=== PATIENT | male | born 1945 | race Caucasian/White ===

== ENCOUNTER → 2018-04-30 09:34 | Outpatient (CLI) | payer OTHER, SELFPAY ==
[2018-04-30 10:41] LABS: Add Manual Diff / Slide Review NO; Basophils Percent Auto 0.6 % (0-2); Eosinophils Percent Auto 4.2 % (2-4); Hematocrit 44.3 % (41-53); Hemoglobin 14.9 g/dL (13.5-17.5); Mean Corpuscular HGB Conc 33.7 % (30-36); Mean Corpuscular Hemoglobin 31.4 PG (26-34); Mean Corpuscular Volume 93.2 fL (80-100); Monocytes Percent Auto 9.8 % (3-14); Neutrophils Absolute Auto 4300 /uL (3000-5900); Neutrophils Percent Auto 57.4 % (50-75); Platelet Count 302 X10^3/uL (150-400); Red Blood Cell Count 4.75 X10^6/uL (4.5-5.9); Red Cell Distribution Width 14.6 % (11.6-14.8); White Blood Cell Count 7.5 X10^3/uL (4.5-11.0)
[2018-04-30 11:02] LABS: Alanine Aminotransferase 35 IU/L (21-72); Albumin 4.5 g/dL (3.5-5.0); Albumin Globulin Ratio 1.7 (1.0-2.8); Alkaline Phosphatase 66 U/L (38-126); Aspartate Aminotransferase 37 IU/L (17-59); Bilirubin Total 0.6 mg/dL (0.2-1.3); Blood Urea Nitrogen 28 mg/dL (9-20); Calcium 9.7 mg/dL (8.4-10.2); Carbon Dioxide 31 mmol/L (22-32); Chloride 99 mmol/L (98-107); Estimated Glomerular Filt Rate > 60.0 mL/min (>60); Globulin 2.7 g/dL (1.7-4.1); Glucose 79 mg/dL (80-110); HEMOLYSIS < 15 (0-50); Potassium 5.4 mmol/L (3.4-5.1); Sodium 139 mmol/L (137-145); Total Protein 7.2 g/dL (6.3-8.2)
[2018-04-30 11:11] LABS: Lithium < 0.2 mmol/L (0.6-1.2)
[2018-04-30 11:27] LABS: Prostate Specific Antigen Scrn 0.905 ng/mL (0.1-4.0)
[2018-04-30 11:47] LABS: TSH w/ Reflex to FT4 2.99 uIU/mL (0.47-4.68)
== END ==
PROVIDERS: Family Provider Family Medicine; PCP Family Medicine; Visit Provider Family Medicine
DX: F31.9 Bipolar disorder, unspecified (principal); I48.91 Unspecified atrial fibrillation; Z12.11 Encounter for screening for malignant neoplasm of colon
CPT/HCPCS: 36415; 80053; 80178; 84443; 85025; G0103

== ENCOUNTER → 2019-02-03 10:56 | Outpatient (CLI) | payer OTHER, SELFPAY ==
--- NOTE | 2019-02-05 09:41 | P.PFT.S_ITS ---
Pulmonary Function Test Referral & Results Date Patient Seen: 02/05/19 Requesting provider: Homero Spaulding Indication: Cough Results: The spirometry demonstrates an FVC of 3.31 L which is 83% of predicted. The FEV1 was measured at 1.73 L which is 60% of predicted. The FEV1/FVC ratio was 52 which is 71% of predicted. Following the administration of bronchodilator there was no significant change. Lung volumes show an SVC of 3.43 L which is 81% of predicted. The diffusing capacity was measured at 20.81 which is 70% of predicted. No hemoglobin value was provided, so no correction for potential anemia could be ma de, if appropriate. The maximum voluntary ventilation was reduced Interpretation: This study demonstrates moderate obstructive lung disease based on reduction in FEV1 and FEV1/FVC ratio. There is no evidence of significant benefit following bronchodilator There is mild reduction lung volumes suggesting mild restrictive lung disease as well There is also mild reduction in diffusing capacity suggesting an element of disease at the capillary alveolar level
== END ==
PROVIDERS: PCP Family Medicine; Visit Provider Family Medicine
DX: R05 Cough (principal)
CPT/HCPCS: 94060; 94726; 94729

== ENCOUNTER → 2019-06-19 12:10 | Outpatient (CLI) | payer OTHER, SELFPAY ==
[2019-06-19 13:12] LABS: Add Manual Diff / Slide Review NO; Basophils Absolute Auto 100 /uL (0-100); Basophils Percent Auto 0.8 % (0-2); Eosinophils Absolute Auto 300 /uL (0-450); Eosinophils Percent Auto 3.9 % (2-4); Hematocrit 40.2 % (41-53); Hemoglobin 13.7 g/dL (13.5-17.5); Lymphocytes Absolute Auto 2000 /uL (1100-4500); Lymphocytes Percent Auto 22.8 % (25-40); Mean Corpuscular HGB Conc 34.1 % (30-36); Mean Corpuscular Hemoglobin 30.9 PG (26-34); Mean Corpuscular Volume 90.6 fL (80-100); Monocytes Absolute Auto 700 /uL (0-900); Monocytes Percent Auto 8.3 % (3-14); Neutrophils Absolute Auto 5600 /uL (1500-7000); Neutrophils Percent Auto 64.2 % (50-75); Platelet Count 366 X10^3/uL (150-400); Red Blood Cell Count 4.44 X10^6/uL (4.5-5.9); Red Cell Distribution Width 13.9 % (11.6-14.8); White Blood Cell Count 8.6 X10^3/uL (4.5-11.0)
[2019-06-19 13:42] LABS: Alanine Aminotransferase 16 IU/L (21-72); Albumin Globulin Ratio 1.5 (1.0-2.8); Alkaline Phosphatase 64 U/L (38-126); Aspartate Aminotransferase 20 IU/L (17-59); BUN Creatinine Ratio 33.8 (6-22); Bilirubin Total 0.4 mg/dL (0.2-1.3); Blood Urea Nitrogen 27 mg/dL (9-20); Calcium 9.5 mg/dL (8.4-10.2); Carbon Dioxide 26 mmol/L (22-32); Chloride 104 mmol/L (98-107); Cholesterol 178 mg/dL (140-199); Estimated Glomerular Filt Rate > 60.0 mL/min (>60); Globulin 2.7 g/dL (1.7-4.1); Glucose 88 mg/dL (80-110); HDL Cholesterol 57 mg/dL (40-60); HEMOLYSIS < 15 (0-50); LDL Cholesterol Calculated 101 mg/dL (<100); Potassium 4.9 mmol/L (3.4-5.1); Sodium 140 mmol/L (137-145); Total Protein 6.7 g/dL (6.3-8.2); Triglycerides 98 mg/dL (35-150)
[2019-06-19 14:14] LABS: TSH w/ Reflex to FT4 3.63 uIU/mL (0.47-4.68)
== END ==
PROVIDERS: PCP Family Medicine; Visit Provider Family Medicine
DX: E03.9 Hypothyroidism, unspecified (principal); F31.9 Bipolar disorder, unspecified; I48.92 Unspecified atrial flutter; Z79.01 Long term (current) use of anticoagulants
CPT/HCPCS: 36415; 80053; 80061; 84443; 85025; G0103

== ENCOUNTER → 2019-11-28 11:37 | Outpatient (CLI) | payer OTHER, SELFPAY ==
[2019-11-28 12:15] LABS: Add Manual Diff / Slide Review NO; Basophils Absolute Auto 100 /uL (0-100); Basophils Percent Auto 0.9 % (0-2); Eosinophils Absolute Auto 500 /uL (0-450); Hemoglobin 14.7 g/dL (13.5-17.5); Lymphocytes Absolute Auto 2100 /uL (1100-4500); Lymphocytes Percent Auto 22.6 % (25-40); Mean Corpuscular HGB Conc 33.3 % (30-36); Mean Corpuscular Hemoglobin 30.5 PG (26-34); Mean Corpuscular Volume 91.5 fL (80-100); Monocytes Absolute Auto 700 /uL (0-900); Monocytes Percent Auto 7.5 % (3-14); Neutrophils Absolute Auto 5800 /uL (1500-7000); Platelet Count 373 X10^3/uL (150-400); Red Blood Cell Count 4.81 X10^6/uL (4.5-5.9); Red Cell Distribution Width 14.3 % (11.6-14.8); White Blood Cell Count 9.1 X10^3/uL (4.5-11.0)
[2019-11-28 12:37] LABS: Lithium 0.5 mmol/L (0.6-1.2)
[2019-11-28 12:38] LABS: Alanine Aminotransferase 19 IU/L (<50); Albumin 4.5 g/dL (3.5-5.0); Albumin Globulin Ratio 1.4 (1.0-2.8); Alkaline Phosphatase 63 U/L (38-126); Aspartate Aminotransferase 26 IU/L (17-59); BUN Creatinine Ratio 30.9 (6-22); Bilirubin Total 0.6 mg/dL (0.2-1.3); Blood Urea Nitrogen 34 mg/dL (9-20); Calcium 9.8 mg/dL (8.4-10.2); Carbon Dioxide 29 mmol/L (22-32); Chloride 104 mmol/L (98-107); Estimated Glomerular Filt Rate > 60.0 mL/min (>60); Globulin 3.2 g/dL (1.7-4.1); Glucose 91 mg/dL (80-110); HEMOLYSIS < 15 (0-50); Potassium 4.7 mmol/L (3.4-5.1); Sodium 141 mmol/L (137-145); Total Protein 7.7 g/dL (6.3-8.2)
[2019-11-28 13:07] LABS: Thyroid Stimulating Hormone 3.75 uIU/mL (0.47-4.68)
== END ==
PROVIDERS: Referring Provider Family Medicine; Visit Provider Family Medicine
DX: E03.9 Hypothyroidism, unspecified (principal); I48.92 Unspecified atrial flutter; J44.9 Chronic obstructive pulmonary disease, unspecified; Z79.01 Long term (current) use of anticoagulants; Z79.899 Other long term (current) drug therapy
CPT/HCPCS: 36415; 80053; 80178; 84443; 85025

== ENCOUNTER → 2021-07-07 14:19 | Outpatient (CLI) | payer OTHER, SELFPAY ==
--- NOTE | 2021-07-07 14:24 | DI.RAD.S_ITS ---
PROCEDURE: XR CHEST 2V INDICATIONS: Pain right lower anterior chest wall TECHNIQUE: 2 views of the chest were acquired. COMPARISON: CT, THORAX WITHOUT CONTRAST, 05/17/2017, 9:43. [facility], CR, CHEST 1 VIEW, 07/16/2013, 10:16. FINDINGS: Surgical changes and devices: None. Lungs and pleura: Lungs are clear, aside from chronic mid left lung scarring which appears stable over time.. No pleural effusions or pneumothorax. Mediastinum: Mediastinal contours are normal. Heart size is normal. Bones and chest wall: No suspicious bony abnormalities. Soft tissues appear unremarkable. IMPRESSION: Chronic mid left lung scarring which appears stable over time. No acute cardiopulmonary disease. Dictated by: Balaji Stallings [facility] Interpreted: Juan Ospina MD on 07/07/2021 at 14:59 Transcribed by: GUDELIA on 07/07/2021 at 15:02 Approved by: Juan Ospina M.D. on 07/07/2021 at 17:28
[2021-07-07 14:50] LABS: Add Manual Diff / Slide Review NO; Basophils Absolute Auto 100 /uL (0-100); Basophils Percent Auto 0.7 % (0-2); Eosinophils Absolute Auto 200 /uL (0-450); Eosinophils Percent Auto 1.8 % (2-4); Hematocrit 45.2 % (41-53); Hemoglobin 14.7 g/dL (13.5-17.5); Lymphocytes Absolute Auto 1700 /uL (1100-4500); Lymphocytes Percent Auto 15.5 % (25-40); Mean Corpuscular HGB Conc 32.6 % (30-36); Mean Corpuscular Hemoglobin 30.1 PG (26-34); Mean Corpuscular Volume 92.4 fL (80-100); Monocytes Absolute Auto 700 /uL (0-900); Monocytes Percent Auto 6.6 % (3-14); Neutrophils Absolute Auto 8000 /uL (1500-7000); Neutrophils Percent Auto 75.4 % (50-75); Platelet Count 383 X10^3/uL (150-400); Red Blood Cell Count 4.89 X10^6/uL (4.5-5.9); Red Cell Distribution Width 14.7 % (11.6-14.8); White Blood Cell Count 10.7 X10^3/uL (4.5-11.0)
[2021-07-07 15:03] LABS: INR 2.7 (0.9-1.3); Prothrombin Time 30.8 SECONDS (10.1-12.7)
[2021-07-07 15:12] LABS: Lithium 0.4 mmol/L (0.6-1.2)
[2021-07-07 15:19] LABS: Alanine Aminotransferase 17 IU/L (<50); Albumin 4.5 g/dL (3.5-5.0); Albumin Globulin Ratio 1.5 (1.0-2.8); Alkaline Phosphatase 65 U/L (38-126); Aspartate Aminotransferase 25 IU/L (17-59); BUN Creatinine Ratio 18.7 (6-22); Bilirubin Total 0.5 mg/dL (0.2-1.3); Blood Urea Nitrogen 20 mg/dL (9-20); Calcium 9.9 mg/dL (8.4-10.2); Carbon Dioxide 31 mmol/L (22-32); Chloride 104 mmol/L (98-107); Estimated Glomerular Filt Rate > 60.0 mL/min (>60); Globulin 3.1 g/dL (1.7-4.1); Glucose 102 mg/dL (80-110); HEMOLYSIS < 15 (0-50); Sodium 141 mmol/L (137-145); Total Protein 7.6 g/dL (6.3-8.2)
[2021-07-07 15:21] LABS: Potassium 5.9 mmol/L (3.4-5.1)
[2021-07-07 15:46] LABS: Thyroid Stimulating Hormone 3.72 uIU/mL (0.47-4.68)
== END ==
PROVIDERS: Physician Assistant; PCP Family Medicine
DX: R07.89 Other chest pain (principal); E03.9 Hypothyroidism, unspecified; Z87.891 Personal history of nicotine dependence; I48.91 Unspecified atrial fibrillation; R10.11 Right upper quadrant pain; Z79.01 Long term (current) use of anticoagulants; F31.9 Bipolar disorder, unspecified; Z79.899 Other long term (current) drug therapy
CPT/HCPCS: 36415; 71046; 80053; 80178; 84443; 85025; 85610

== ENCOUNTER → 2021-07-21 12:37 | Outpatient (CLI) | payer OTHER, SELFPAY ==
--- NOTE | 2021-07-21 12:38 | DI.US.S_ITS ---
PROCEDURE: US ABDOMEN LIMITED INDICATIONS: RUQ PAIN TECHNIQUE: Real-time focused scanning was performed of the abdomen, with image documentation. COMPARISON: None. FINDINGS: The liver is normal in size and demonstrates no suspicious lesions. Simple cysts are seen, which measure up to 1 cm in the right liver posteriorly and up to 1.1 cm within the medial left lobe. No findings of gallstones or sludge are seen. The gallbladder wall is not thickened, measuring 3 mm or less. No specific pericholecystic fluid is seen. The sonographic Schwartz sign is negative. There is no biliary dilatation, the common bile duct measures 6 mm. No significant pancreatic abnormality is seen on these images. IMPRESSION: The gallbladder demonstrates a normal sonographic appearance. No biliary dilatation is seen. Simple appearing liver cysts are incidentally noted. Dictated by: Kemal Kaur M.D. on 07/21/2021 at 12:37 Approved by: Kemal Kaur M.D. on 07/21/2021 at 12:37
== END ==
PROVIDERS: PCP Family Medicine; Referring Provider Physician Assistant; Visit Provider Physician Assistant
DX: R10.11 Right upper quadrant pain (principal); K76.89 Other specified diseases of liver
CPT/HCPCS: 76705

== ENCOUNTER 2022-01-12 09:03 | Emergency (ER) | payer OTHER, SELFPAY ==
[2022-01-12] VITALS (38 sets, daily range): BP systolic 83–108; BP diastolic 59–74; PULSE 74–111; RESP 18–36; TEMP 36.9; O2SAT 100; BMI 20.3
--- NOTE | 2022-01-12 09:15 | DI.RAD.S_ITS ---
PROCEDURE: XR CHEST 1V INDICATIONS: Chest pain TECHNIQUE: One view of the chest was acquired. COMPARISON: [facility], CR, XR CHEST 1 VIEW, 01/06/2022, 22:37. [facility], CR, XR CHEST 2V, 07/07/2021, 14:52. FINDINGS: Surgical changes and devices: None. Lungs and pleura: Low lung volumes are noted. This causes a crowded appearance to the lung markings and limits evaluation. There is a small left-sided pleural effusion. Poorly defined opacity can be seen at the left lung base. Mediastinum: Mediastinal contours appear normal. Heart size is mildly enlarged. Bones and chest wall: No suspicious bony lesions. Age-appropriate bony degenerative changes are seen. Overlying soft tissues appear unremarkable. IMPRESSION: Small left-sided pleural effusion, with mild poorly defined opacity within the left lower lung. Differential diagnosis includes infiltrate and atelectasis. These findings have worsened compared to the recent 01/06/2022 examination. If clinically appropriate, a short-term followup chest series (with PA and lateral views) performed in deep inspiration is suggested for further evaluation. Mild cardiomegaly. Dictated by: Kemal Kaur M.D. on 01/12/2022 at 8:37 Approved by: Kemal Kaur M.D. on 01/12/2022 at 8:39
--- NOTE | 2022-01-12 09:17 | ED_ITS ---
HPI - Arrhythmia/Palpitations General Chief Complaint: Arrhythmia/Palpitations Stated Complaint: Supraventricular tachycardia Time Seen by Provider: 01/12/22 09:14 Source: patient Mode of arrival: EMS History of Present Illness HPI narrative: Patient here for palpitations and generalized weakness. Patient has history atrial fibrillation is on warfarin. Patient just discharged from [facility] yesterday for chest pain and cardiac workup. He did have a heart catheterization while he was there. 3:00 a.m. this morning he awoke feeling palpitations and general fatigue. He lives on [address] [place] [address]. EMS arrived this morning found him in SVT. Tried adenosine 6 mg/12 mg without improvement. They did give him Cardizem 15 mg which lowered his heart rate to 110. Patient feeling much better. Related Data Previous Rx's Medication Instructions Recorded albuterol sulfate 90 mcg/actuation 2 puff INHALATION Q4-6H PRN #8.5 03/05/17 aerosol inhaler (Ventolin HFA) gram levothyroxine 50 mcg tablet See Rx Instructions .ROUTE 10/13/21 .COMPLEX #90 tablet lithium carbonate 300 mg See Rx Instructions .ROUTE 10/13/21 tablet,extended release .COMPLEX #90 tablet colchicine 0.6 mg tablet See Rx Instructions PO .COMPLEX 10/25/21 #10 tab lamotrigine 100 mg tablet See Rx Instructions .ROUTE 11/24/21 .COMPLEX #225 tab metoprolol tartrate 50 mg tablet See Rx Instructions .ROUTE 12/26/21 .COMPLEX #180 tab warfarin 5 mg tablet 5 mg PO QDAY #90 tab 01/04/22 Allergies Allergy/AdvReac Type Severity Reaction Status Date / Time venom-wasp [wasp venom] Allergy Mild Verified 01/12/22 09:14 Review of Systems Review of Systems Narrative: GENERAL: Denies chills, fatigue, malaise, fever, sweats. HEENT: Denies sinus pain, ear pain, sore throat RESPIRATORY: Denies dyspnea, cough CARDIOVASCULAR: Positive for chest pain, palpitations GASTROINTESTINAL: Denies nausea, vomiting, abdominal pain : Denies dysuria, frequency, hematuria MUSCULOSKELETAL: denies muscle or bony pain SKIN: Denies rash, skin lesions NEUROLOGIC: Denies weakness, numbness ROS Unobtainable: All systems reviewed & are unremarkable except as noted in HPI and below Patient History Medical History Acquired hypothyroidism (11/24/13) Anticoagulated on warfarin (05/11/14) Atrial fibrillation (11/24/13) Atrial fibrillation (2012) Atrial flutter Bipolar affective disorder (11/24/13) Bipolar disorder (2010) Chicken pox (~1950) Current smoker (05/01/17) Gout (2014) Hypothyroidism Measles (~1950) Typical atrial flutter (03/05/17) Surgical History No history of previous surgery (08/2016) Family History Father Heart disease Hx of CABG CAD (coronary artery disease) Grandfather Stroke Mother Hypothyroid Mental health problem Grandmother Stroke Social History marital status: Smoking Status: Former smoker alcohol intake: never substance use type: does not use Smoking Status: Former smoker alcohol intake frequency: holidays/special occasions only Substance Use Type: does not use Exam Narrative Exam Narrative: GENERAL: in no distress, not toxic not dyspneic HEAD: Normocephalic. EYES: Pupils equal round No scleral icterus. ENT: Mucous membranes moist. NECK: Trachea midline. CARDIOVASCULAR: Irregular regular without murmurs, tachycardic RESPIRATORY: Clear to auscultation. Breath sounds equal bilaterally. No wheezes, rales, or rhonchi. GASTROINTESTINAL: Abdomen soft, non-tender EXTREMITIES: No gross deformities. BACK: No flank tenderness. NEURO: AOx4. SKIN: Warm and dry PSYCH: Not anxious, is cooperative Initial Vital Signs Initial Vital Signs: Vital Signs Temperature 98.4 F 01/12/22 09:14 Pulse Rate 109 H 01/12/22 09:14 Respiratory Rate 23 01/12/22 09:14 Blood Pressure 100/68 01/12/22 09:14 Pulse Oximetry 100 01/12/22 09:14 Course Course Course Narrative: No new issues during course of stay Orders Ordered: ED Orders 01/12/22 09:15 XR chest 1V Stat EKG-12 Lead Stat 01/12/22 09:26 COVID19 -Nasal swab/Pre-Proc Stat 03/31/22 09:52 Complete Blood Count AUTO DIFF Stat Comprehensive Metabolic Panel Stat Magnesium Stat Partial Thromboplastin Time Stat Prothrombin Time INR Stat Thyroid Stimulating Hormone Stat Troponin & CK Cardiac Panel Stat Discontinued Medications Diltiazem HCl 125 mg/ Dextrose 125 mls @ 5 mls/hr IV TITRATE ANANTH; Protocol Last Titration: 01/12/22 10:30 Dose: 3 mg/hr, 3 mls/hr Documented by: Admin: 01/12/22 09:29 Dose: 5 mg/hr, 5 mls/hr Documented by: ROSEMARY Reevaluation(s) Reevaluation #1: Updated patient that he is going to be transfer any agrees. Time: 10:01 Consultations Consultation #1: Spoke with cardiology Dr. Chacko, agrees patient should be transferred back to [facility] as he was just discharged yesterday. Time: 09:36 Consultation #2: Spoke with [facility], hospitalist, Dr. Schuster, he will accept patient Time: 10:01 Vital Signs Vital signs: Vital Signs - 8 hr 01/12/22 09:14 01/12/22 09:25 01/12/22 09:29 Temperature 98.4 F Pulse Rate 109 H 111 H 109 H Respiratory Rate 23 27 H Blood Pressure 100/68 95/68 Pulse Oximetry 100 01/12/22 09:30 01/12/22 09:35 01/12/22 09:40 Temperature Pulse Rate 108 H 107 H 111 H Respiratory Rate 27 H 24 31 H Blood Pressure 95/68 88/64 L 89/65 L Pulse Oximetry 01/12/22 09:45 01/12/22 09:50 01/12/22 09:55 Temperature Pulse Rate 110 H 108 H 105 H Respiratory Rate 26 H 26 H 24 Blood Pressure 101/60 Pulse Oximetry 01/12/22 10:00 01/12/22 10:05 01/12/22 10:10 Temperature Pulse Rate 106 H 102 H 99 H Respiratory Rate 20 23 22 Blood Pressure 92/68 95/68 94/64 Pulse Oximetry 01/12/22 10:15 01/12/22 10:20 01/12/22 10:25 Temperature Pulse Rate 97 H 88 86 Respiratory Rate 22 22 20 Blood Pressure 96/65 100/68 89/59 L Pulse Oximetry 01/12/22 10:30 01/12/22 10:31 01/12/22 10:35 Temperature Pulse Rate 84 86 78 Respiratory Rate 21 21 22 Blood Pressure 91/61 83/61 L Pulse Oximetry 01/12/22 10:40 01/12/22 10:45 01/12/22 10:50 Temperature Pulse Rate 77 78 77 Respiratory Rate 20 19 19 Blood Pressure 93/65 103/72 85/65 L Pulse Oximetry 01/12/22 10:55 01/12/22 10:58 01/12/22 11:00 Temperature Pulse Rate 81 80 87 Respiratory Rate 18 25 H 27 H Blood Pressure 94/62 103/64 Pulse Oximetry 01/12/22 11:05 01/12/22 11:10 01/12/22 11:15 Temperature Pulse Rate 81 100 H 92 H Respiratory Rate 19 36 H 25 H Blood Pressure 108/65 105/70 Pulse Oximetry 01/12/22 11:20 01/12/22 11:25 01/12/22 11:26 Temperature Pulse Rate 79 82 74 Respiratory Rate 23 24 23 Blood Pressure 98/67 94/68 Pulse Oximetry 01/12/22 11:30 01/12/22 11:35 01/12/22 11:39 Temperature Pulse Rate 84 80 82 Respiratory Rate 25 H 24 24 Blood Pressure 98/74 97/70 Pulse Oximetry 01/12/22 11:40 01/12/22 11:45 01/12/22 11:50 Temperature Pulse Rate 75 82 97 H Respiratory Rate 22 19 25 H Blood Pressure 102/69 91/68 102/73 Pulse Oximetry 01/12/22 11:55 01/12/22 12:00 Temperature Pulse Rate 77 77 Respiratory Rate 21 25 H Blood Pressure 104/69 105/71 Pulse Oximetry MDM - Arrhythmia/Palpitations Differential Diagnosis Differential diagnosis: Likely palpitations, sinus tachycardia, artial fibrillation, artial flutter, supraventricular tachycardia and ventricular tachycardia Lab Data Result diagrams: 01/12/22 09:52 01/12/22 09:52 Labs: Lab Results 01/12/22 01/12/22 01/12/22 Range/Units 09:26 09:52 09:52 WBC (4.5-11.0) X10^3/uL RBC (4.5-5.9) X10^6/uL Hgb (13.5-17.5) g/dL Hct (41-53) % MCV (80-100) fL MCH (26-34) PG MCHC (30-36) % RDW (11.6-14.8) % Plt Count (150-400) X10^3/uL Neut % (Auto) (50-75) % Lymph % (Auto) (25-40) % Lee % (Auto) (3-14) % Eos % (Auto) (2-4) % Baso % (Auto) (0-2) % Neut # (Auto) (2463-8524) /uL Lymph # (Auto) (6587-0131) /uL Lee # (Auto) (0-900) /uL Eos # (Auto) (0-450) /uL Baso # (Auto) (0-100) /uL PT 30.7 H (10.1-12.7) SECONDS INR 2.6 H (0.9-1.3) APTT 37 H (26.4-36.2) SECONDS Sodium 135 L (137-145) mmol/L Potassium 4.2 (3.4-5.1) mmol/L Chloride 106 (98-107) mmol/L Carbon Dioxide 23 (22-32) mmol/L BUN 24 H (9-20) mg/dL Creatinine 1.23 (0.66-1.25) mg/dL Estimated GFR 57.2 L (>60) mL/min BUN/Creatinine Ratio 19.5 (6-22) Glucose 125 H (80-110) mg/dL Calcium 7.9 L (8.4-10.2) mg/dL Magnesium (1.6-2.3) mg/dL Total Bilirubin 0.6 (0.2-1.3) mg/dL AST 40 (17-59) IU/L ALT 27 (<50) IU/L Alkaline Phosphatase 98 (38-126) U/L Total Creatine Kinase (55-170) U/L CK-MB (CK-2) CK-MB (CK-2) Rel Index Troponin I (0.01-0.034) ng/mL Total Protein 6.2 L (6.3-8.2) g/dL Albumin 3.2 L (3.5-5.0) g/dL Globulin 3.0 (1.7-4.1) g/dL Albumin/Globulin Ratio 1.1 (1.0-2.8) TSH (0.47-4.68) uIU/mL SARS-CoV-2 (PCR) Negative (Negative) 01/12/22 01/12/22 01/12/22 Range/Units 09:52 09:52 09:52 WBC 12.4 H (4.5-11.0) X10^3/uL RBC 3.99 L (4.5-5.9) X10^6/uL Hgb 11.9 L (13.5-17.5) g/dL Hct 35.8 L (41-53) % MCV 89.7 (80-100) fL MCH 29.8 (26-34) PG MCHC 33.3 (30-36) % RDW 14.6 (11.6-14.8) % Plt Count 303 (150-400) X10^3/uL Neut % (Auto) 85.6 H (50-75) % Lymph % (Auto) 6.0 L (25-40) % Lee % (Auto) 8.0 (3-14) % Eos % (Auto) 0.2 L (2-4) % Baso % (Auto) 0.2 (0-2) % Neut # (Auto) 90993 H (9215-1559) /uL Lymph # (Auto) 700 L (6230-1755) /uL Lee # (Auto) 1000 H (0-900) /uL Eos # (Auto) 0 (0-450) /uL Baso # (Auto) 0 (0-100) /uL PT (10.1-12.7) SECONDS INR (0.9-1.3) APTT (26.4-36.2) SECONDS Sodium (137-145) mmol/L Potassium (3.4-5.1) mmol/L Chloride (98-107) mmol/L Carbon Dioxide (22-32) mmol/L BUN (9-20) mg/dL Creatinine (0.66-1.25) mg/dL Estimated GFR (>60) mL/min BUN/Creatinine Ratio (6-22) Glucose (80-110) mg/dL Calcium (8.4-10.2) mg/dL Magnesium 1.6 (1.6-2.3) mg/dL Total Bilirubin (0.2-1.3) mg/dL AST (17-59) IU/L ALT (<50) IU/L Alkaline Phosphatase (38-126) U/L Total Creatine Kinase 89 (55-170) U/L CK-MB (CK-2) TNP CK-MB (CK-2) Rel Index TNP Troponin I 0.366 H* (0.01-0.034) ng/mL Total Protein (6.3-8.2) g/dL Albumin (3.5-5.0) g/dL Globulin (1.7-4.1) g/dL Albumin/Globulin Ratio (1.0-2.8) TSH 4.78 H (0.47-4.68) uIU/mL SARS-CoV-2 (PCR) (Negative) Imaging Data Chest x-ray: Radiologist's Impresson: [address] [address] XRay Report Signed Patient: Tony Laws MR#: [id number] : 1945 Acct:[id number] Age/Sex: 76 / M Date of Service: 01/12/22 Loc: ED Accession Number: [id number] ?? Procedure: XR chest 1V Ordering Provider: Jabari Hewitt MD PROCEDURE:? XR CHEST 1V ? INDICATIONS:? Chest pain ? TECHNIQUE:? One view of the chest was acquired.? ? COMPARISON:? [facility], CR, XR CHEST 1 VIEW, 01/06/2022, 22:37.? [facility], , XR CHEST 2V, 07/07/2021, 14:52. ? FINDINGS:? ? Surgical changes and devices:? None.? ? Lungs and pleura:? Low lung volumes are noted. This causes a crowded appearance to the lung markings and limits evaluation.? There is a small left-sided pleural effusion.? Poorly defined opacity can be seen at the left lung base. ? Mediastinum:? Mediastinal contours appear normal.? Heart size is mildly enlarged.? ? Bones and chest wall:? No suspicious bony lesions.? Age-appropriate bony degenerative changes are seen. ? Overlying soft tissues appear unremarkable.? ? ? IMPRESSION:? Small left-sided pleural effusion, with mild poorly defined opacity within the left lower lung.? Differential diagnosis includes infiltrate and atelectasis.? These findings have worsened compared to the recent 01/06/2022 examination. ? If clinically appropriate, a short-term followup chest series (with PA and lateral views) performed in deep inspiration is suggested for further evaluation.? ? Mild cardiomegaly. ? ? Dictated by: Kemal Kaur M.D. on 01/12/2022 at 8:37 ? ? Approved by: Kemal Kaur M.D. on 01/12/2022 at 8:39 ? ECG Data Interpretation: Atrial flutter. Rate 105. No ST elevation or depression Critical Care Time Critical Care Time Attestation: Critical Care Time 35 minutes: Critical care time is separate from other billable procedures. This critical care time includes consultation with other consulting doctors, review of records, and interpretation of data from labs, EKGs, imaging, etc. Discharge Plan Departure Patient Disposition: [facility] Clinical Impression: Atrial flutter Prescriptions: No Action metoprolol tartrate 50 mg tablet See Rx Instructions .ROUTE .COMPLEX Qty: 180 0RF Dose Instruction: TAKE 2 TABLETS BY MOUTH EVERY MORNING & TAKE 1 TABLET EVERY EVENING Rx Instructions: TAKE 2 TABLETS BY MOUTH EVERY MORNING & TAKE 1 TABLET EVERY EVENING albuterol sulfate [Ventolin HFA] 90 mcg/actuation HFA aerosol inhaler 2 puff inhalation Q4-6H PRN (Reason: shortness of breath or wheezing) Qty: 8.5 3RF lithium carbonate 300 mg tablet extended release See Rx Instructions .ROUTE .COMPLEX Qty: 90 1RF Dose Instruction: TAKE 1 TABLET BY MOUTH AT BEDTIME Rx Instructions: TAKE 1 TABLET BY MOUTH AT BEDTIME levothyroxine 50 mcg tablet See Rx Instructions .ROUTE .COMPLEX Qty: 90 1RF Dose Instruction: TAKE 1 TABLET BY MOUTH EVERY DAY Rx Instructions: TAKE 1 TABLET BY MOUTH EVERY DAY colchicine 0.6 mg tablet See Rx Instructions PO .COMPLEX Qty: 10 0RF Rx Instructions: Take 2 tabs once for acute attack and then one tab one hour later. Then stop. lamotrigine 100 mg tablet See Rx Instructions .ROUTE .COMPLEX Qty: 225 1RF Dose Instruction: TAKE 2 AND 1/2 TABLETS BY MOUTH EVERY NIGHT AT BEDTIME Rx Instructions: TAKE 2 AND 1/2 TABLETS BY MOUTH EVERY NIGHT AT BEDTIME warfarin 5 mg tablet 5 mg PO QDAY Qty: 90 1RF Rx Instructions: Take one tab (5mg) by mouth 5 days a week. along with 2mg on , and Sat or as directed. Referrals: Homero Spaulding MD [Primary Care Provider] -
[2022-01-12] MEDS: dilTIAZem 125 MG in DEXTROSE 5 % IN WATER 100 ML IV (09:29)
[2022-01-12 09:47] LABS: COVID19 -Nasal RAPID Negative (Negative)
[2022-01-12 10:01] LABS: Add Manual Diff / Slide Review NO; Basophils Absolute Auto 0 /uL (0-100); Basophils Percent Auto 0.2 % (0-2); Eosinophils Absolute Auto 0 /uL (0-450); Eosinophils Percent Auto 0.2 % (2-4); Hematocrit 35.8 % (41-53); Hemoglobin 11.9 g/dL (13.5-17.5); Lymphocytes Absolute Auto 700 /uL (1100-4500); Mean Corpuscular HGB Conc 33.3 % (30-36); Mean Corpuscular Hemoglobin 29.8 PG (26-34); Mean Corpuscular Volume 89.7 fL (80-100); Monocytes Absolute Auto 1000 /uL (0-900); Neutrophils Absolute Auto 10600 /uL (1500-7000); Neutrophils Percent Auto 85.6 % (50-75); Platelet Count 303 X10^3/uL (150-400); Red Blood Cell Count 3.99 X10^6/uL (4.5-5.9); Red Cell Distribution Width 14.6 % (11.6-14.8); White Blood Cell Count 12.4 X10^3/uL (4.5-11.0)
[2022-01-12 10:09] LABS: INR 2.6 (0.9-1.3); Prothrombin Time 30.7 SECONDS (10.1-12.7)
[2022-01-12 10:12] LABS: PTT Partial Thromboplastin Tim 37 SECONDS (26.4-36.2)
[2022-01-12 10:15] LABS: Creatine Kinase 89 U/L (55-170); Magnesium 1.6 mg/dL (1.6-2.3)
[2022-01-12 10:16] LABS: Alanine Aminotransferase 27 IU/L (<50); Albumin 3.2 g/dL (3.5-5.0); Albumin Globulin Ratio 1.1 (1.0-2.8); Alkaline Phosphatase 98 U/L (38-126); Aspartate Aminotransferase 40 IU/L (17-59); BUN Creatinine Ratio 19.5 (6-22); Bilirubin Total 0.6 mg/dL (0.2-1.3); Blood Urea Nitrogen 24 mg/dL (9-20); Calcium 7.9 mg/dL (8.4-10.2); Carbon Dioxide 23 mmol/L (22-32); Chloride 106 mmol/L (98-107); Estimated Glomerular Filt Rate 57.2 mL/min (>60); Glucose 125 mg/dL (80-110); HEMOLYSIS < 15 (0-50); Potassium 4.2 mmol/L (3.4-5.1); Sodium 135 mmol/L (137-145); Total Protein 6.2 g/dL (6.3-8.2)
[2022-01-12 11:25] LABS: Troponin I 0.366 ng/mL (0.01-0.034)
[2022-01-12 12:24] LABS: Thyroid Stimulating Hormone 4.78 uIU/mL (0.47-4.68)
== END 2022-01-12 12:15 | disposition short-term general hospital (02) ==
PROVIDERS: Emergency Provider Emergency Medicine; PCP Family Medicine
DX: I48.92 Unspecified atrial flutter (principal); Z20.822 Contact with and (suspected) exposure to COVID-19; Z79.01 Long term (current) use of anticoagulants; Z98.62 Peripheral vascular angioplasty status
CPT/HCPCS: 36415; 71045; 80053; 82550; 83735; 84443; 84484; 85025; 85610; 85730; 87635; 93005; 96365; 99284; 99285; 99291; C9803

== ENCOUNTER → 2022-02-09 12:39 | Outpatient (CLI) | payer OTHER, SELFPAY ==
--- NOTE | 2022-02-09 12:41 | DI.RAD.S_ITS ---
PROCEDURE: XR CHEST 2V INDICATIONS: F/U on pneumonia L lung - biopsy neg for cancer TECHNIQUE: 2 views of the chest were acquired. COMPARISON: [facility], CR, XR CHEST 2V, 07/07/2021, 14:52. [facility], CR, XR CHEST 1 VIEW, 01/17/2022, 12:32. FINDINGS: Surgical changes and devices: None. Lungs and pleura: Airspace opacity in the left lung is improved but not entirely resolved. There is some residual consolidation in the left retrocardiac lung. Linear scarring versus atelectasis in the left lateral mid lung is similar. Mediastinum: Mediastinal contours are normal. Heart size is normal. Bones and chest wall: No suspicious bony abnormalities. Soft tissues appear unremarkable. IMPRESSION: Improved but not entirely resolved airspace opacity in the left retrocardiac lung. Dictated by: Homero Bean M.D. on 02/09/2022 at 14:25 Approved by: Homero Bean M.D. on 02/09/2022 at 14:26
[2022-02-09 13:32] LABS: Prothrombin Time 108.5 SECONDS (10.1-12.7)
[2022-02-09 13:50] LABS: INR 9.1 (0.9-1.3)
== END ==
PROVIDERS: PCP Family Medicine; Referring Provider Physician Assistant; Visit Provider Physician Assistant
DX: I48.3 Typical atrial flutter (principal); J18.9 Pneumonia, unspecified organism; I48.91 Unspecified atrial fibrillation; I48.92 Unspecified atrial flutter; Z79.01 Long term (current) use of anticoagulants; Z79.899 Other long term (current) drug therapy
CPT/HCPCS: 36415; 71046; 85610

== ENCOUNTER → 2022-02-23 11:01 | Outpatient (CLI) | payer OTHER, SELFPAY ==
[2022-02-23 12:05] LABS: Prothrombin Time 80.6 SECONDS (10.1-12.7)
[2022-02-23 12:15] LABS: INR 6.8 (0.9-1.3)
== END ==
PROVIDERS: PCP Family Medicine; Referring Provider Physician Assistant; Visit Provider Physician Assistant
DX: I48.21 Permanent atrial fibrillation (principal); Z79.01 Long term (current) use of anticoagulants; Z79.899 Other long term (current) drug therapy
CPT/HCPCS: 36415; 85610

== ENCOUNTER → 2022-04-13 13:10 | Outpatient (CLI) | payer OTHER, SELFPAY ==
--- NOTE | 2022-05-02 10:04 | PM.CARDMON.1 ---
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 Referral & Results Date Patient Seen: 04/13/22 Requesting provider: Homero Spaulding Indication: Dizziness Duration of monitoring (days): 14 Diary information: There were no patient events to review Data: Minimum heart rate identified was 30 beats per minute at 17:25 on 04/20/2022 Maximum overall heart rate was 143 beats per minute at 23:36 on 04/14/2022 Patient was continuously in atrial flutter, with heart rate ranging between 38 and 139 beats per minute Less than 1% of identified beats were ventricular ectopic in origin There were 2 pauses of 3 seconds or longer the longest being 3.1 seconds There was 1 episode of ventricular tachycardia that was 9 beats in duration Impression: Patient continuously in atrial flutter as above with heart rates as above 2 pauses of longer than 3 seconds 1 episode of nonsustained monomorphic ventricular tachycardia as above, although reviewing the strips the QRS complexes were fairly narrow and probably represent a near supraventricular origin Clinical correlation suggested
== END ==
PROVIDERS: PCP Family Medicine; Referring Provider Family Medicine; Visit Provider Family Medicine
DX: R42 Dizziness and giddiness (principal); I48.91 Unspecified atrial fibrillation; R00.0 Tachycardia, unspecified
CPT/HCPCS: 93246; 93248

== ENCOUNTER → 2022-04-27 12:32 | Outpatient (CLI) | payer OTHER, SELFPAY ==
[2022-04-27 14:04] LABS: Prothrombin Time 90.3 SECONDS (10.1-12.7)
[2022-04-27 14:28] LABS: INR 7.5 (0.9-1.3)
== END ==
PROVIDERS: PCP Family Medicine; Referring Provider Family Medicine; Visit Provider Family Medicine
DX: I48.91 Unspecified atrial fibrillation (principal); Z79.01 Long term (current) use of anticoagulants
CPT/HCPCS: 36415; 85610

== ENCOUNTER → 2022-08-22 12:10 | Outpatient (CLI) | payer OTHER, SELFPAY ==
[2022-08-22 15:33] LABS: Prothrombin Time 54.9 SECONDS (10.1-12.7)
[2022-08-22 15:39] LABS: INR 4.7 (0.9-1.3)
== END ==
PROVIDERS: PCP Family Medicine; Referring Provider Family Medicine; Visit Provider Family Medicine
DX: I48.21 Permanent atrial fibrillation (principal); Z51.81 Encounter for therapeutic drug level monitoring; Z79.01 Long term (current) use of anticoagulants
CPT/HCPCS: 36415; 85610

== ENCOUNTER → 2022-08-30 16:35 | Outpatient (CLI) | payer OTHER, SELFPAY ==
[2022-08-30 17:12] LABS: INR 2.1 (0.9-1.3); Prothrombin Time 23.7 SECONDS (10.1-12.7)
== END ==
PROVIDERS: PCP Family Medicine; Referring Provider Family Medicine; Visit Provider Family Medicine
DX: I48.21 Permanent atrial fibrillation (principal); Z79.01 Long term (current) use of anticoagulants
CPT/HCPCS: 36415; 85610

== ENCOUNTER → 2022-09-21 15:02 | Outpatient (CLI) | payer OTHER, SELFPAY ==
[2022-09-21 16:35] LABS: INR 3.5 (0.9-1.3); Prothrombin Time 40.2 SECONDS (10.1-12.7)
== END ==
PROVIDERS: PCP Family Medicine; Referring Provider Family Medicine; Visit Provider Family Medicine
DX: I48.21 Permanent atrial fibrillation (principal); Z79.01 Long term (current) use of anticoagulants
CPT/HCPCS: 36415; 85610

== ENCOUNTER → 2022-11-23 12:23 | Outpatient (CLI) | payer OTHER, SELFPAY ==
[2022-11-23 13:55] LABS: INR 2.5 (0.9-1.3); Prothrombin Time 29.3 SECONDS (10.1-12.7)
== END ==
PROVIDERS: PCP Family Medicine; Referring Provider Family Medicine; Visit Provider Family Medicine
DX: I48.21 Permanent atrial fibrillation (principal); Z79.899 Other long term (current) drug therapy
CPT/HCPCS: 36415; 85610

== ENCOUNTER → 2022-12-07 10:27 | Outpatient (CLI) | payer OTHER, SELFPAY ==
--- NOTE | 2022-12-07 10:28 | DI.US.S_ITS ---
PROCEDURE: US ABDOMEN LIMITED INDICATIONS: RIGHT UPPER QUADRANT PAIN X 1 MONTH TECHNIQUE: Real-time focused scanning was performed of the abdomen, with image documentation. COMPARISON: [facility], , US ABDOMEN LIMITED, 07/21/2021, 12:56. FINDINGS: The liver is normal in size and demonstrates no focal lesions. Multiple liver cysts are seen, with the largest seen on the right measuring up to 1.5 cm. No findings of gallstones or sludge are seen. The gallbladder wall is not thickened, measuring 3 mm or less. No specific pericholecystic fluid is seen. The sonographic Schwartz sign is negative. There is no biliary dilatation, the common bile duct measures 7 mm. The pancreas is overall not well seen. The right kidney is atrophic and lobular, with the length of 8.8 cm. Within the mid anterior right kidney, there is a 1.3 cm simple appearing cyst. Multiple punctate echogenic foci can be seen throughout the right kidney. A potential 1 cm shadowing right kidney stone can be seen. IMPRESSION: The gallbladder demonstrates a normal sonographic appearance. No biliary dilatation is seen. Atrophic appearing right kidney. Potential 1 cm nonobstructing right-sided kidney stone, with additional likely stones present. Several simple liver cysts are seen Dictated by: Kemal Kaur M.D. on 12/07/2022 at 12:22 Approved by: Kemal Kaur M.D. on 12/07/2022 at 12:25
== END ==
PROVIDERS: PCP Family Medicine; Referring Provider Physician Assistant; Visit Provider Physician Assistant
DX: R10.11 Right upper quadrant pain (principal); K76.89 Other specified diseases of liver; N28.1 Cyst of kidney, acquired
CPT/HCPCS: 76705

== ENCOUNTER → 2023-02-09 11:25 | Outpatient (CLI) | payer OTHER, SELFPAY ==
--- NOTE | 2023-02-09 11:30 | DI.CT.S_ITS ---
PROCEDURE: CT CHEST W CON INDICATIONS: Left lung mass. Biopsy performed by CT guidance 01/17/22, with pathology report of organizing pneumonia, fibrous stage, negative for malignancy. TECHNIQUE: After the administration of intravenous contrast, 5 mm thick sections acquired from the pulmonary apices to the posterior costophrenic angles. 1 mm axial lung, 5 mm thick coronal and sagittal reformats and 7 mm axial MIP were acquired. For radiation dose reduction, the following was used: automated exposure control, adjustment of mA and/or kV according to patient size. COMPARISON: [facility], CT, CT BIOPSY LUNG/MEDIASTINUM, 01/17/2022, 8:59. FINDINGS: Image quality: Excellent. Lungs and pleura: No acute air space opacities. The distortion of the left upper lobe and adjacent pleural surfaces has prominently improved, with mild residual scarring. No pleural effusions or pneumothorax. Central and peripheral airways are patent and normal in caliber. Mediastinum: Heart size is normal. No pericardial effusion. No mediastinal or hilar adenopathy by size criteria. Thoracic aorta and central pulmonary arteries are normal in size. Esophagus is normal in caliber. No hiatal hernia. Bones and chest wall: No suspicious bony lesions. No vertebral body compression fractures. No axillary or supraclavicular adenopathy by size criteria. Thyroid gland appears normal where well seen. . Abdomen: Visualized upper abdominal solid organs appear normal. Upper abdominal bowel loops are normal in caliber. IMPRESSION: Prominent improvement in the left lung and pleural abnormality previously biopsied 01/17/22. 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 Currently there is no suspicion for active infection or underlying neoplasm. Dictated by: Bryce Brantley M.D. on 02/09/2023 at 15:31 Approved by: Bryce Brantley M.D. on 02/09/2023 at 15:34
[2023-02-09 12:54] LABS: Add Manual Diff / Slide Review NO; Basophils Absolute Auto 0 /uL (0-100); Basophils Percent Auto 0.3 % (0-2); Eosinophils Absolute Auto 400 /uL (0-450); Eosinophils Percent Auto 4.5 % (2-4); Hematocrit 39.9 % (41-53); Hemoglobin 13.3 g/dL (13.5-17.5); Lymphocytes Absolute Auto 1500 /uL (1100-4500); Lymphocytes Percent Auto 18.5 % (25-40); Mean Corpuscular HGB Conc 33.4 % (30-36); Mean Corpuscular Hemoglobin 30.1 PG (26-34); Mean Corpuscular Volume 90.3 fL (80-100); Monocytes Absolute Auto 700 /uL (0-900); Monocytes Percent Auto 8.6 % (3-14); Neutrophils Absolute Auto 5700 /uL (1500-7000); Neutrophils Percent Auto 68.1 % (50-75); Platelet Count 259 X10^3/uL (150-400); Red Blood Cell Count 4.41 X10^6/uL (4.5-5.9); Red Cell Distribution Width 14.1 % (11.6-14.8); White Blood Cell Count 8.3 X10^3/uL (4.5-11.0)
[2023-02-09 14:23] LABS: Alanine Aminotransferase 31 IU/L (<50); Albumin Globulin Ratio 1.5 (1.0-2.8); Alkaline Phosphatase 78 U/L (38-126); Aspartate Aminotransferase 29 IU/L (17-59); BUN Creatinine Ratio 28.3 (6-22); Bilirubin Total 0.4 mg/dL (0.2-1.3); Blood Urea Nitrogen 28 mg/dL (9-20); Calcium 8.9 mg/dL (8.4-10.2); Carbon Dioxide 28 mmol/L (22-32); Chloride 103 mmol/L (98-107); Cholesterol 125 mg/dL (140-199); Estimated Glomerular Filt Rate > 60 mL/min (>60); Globulin 2.6 g/dL (1.7-4.1); Glucose 85 mg/dL (80-110); HDL Cholesterol 62 mg/dL (40-60); HEMOLYSIS < 15 (0-50); LDL Cholesterol Calculated 49 mg/dL (<100); Sodium 137 mmol/L (137-145); Total Protein 6.6 g/dL (6.3-8.2); Triglycerides 69 mg/dL (35-150)
[2023-02-09 14:45] LABS: Lithium 0.5 mmol/L (0.6-1.2)
[2023-02-09 15:19] LABS: TSH w/ Reflex to FT4 3.07 uIU/mL (0.47-4.68)
== END ==
PROVIDERS: PCP Family Medicine; Referring Provider Family Medicine; Visit Provider Family Medicine
DX: J18.9 Pneumonia, unspecified organism (principal); R91.8 Other nonspecific abnormal finding of lung field; E03.9 Hypothyroidism, unspecified; F31.9 Bipolar disorder, unspecified
CPT/HCPCS: 36415; 71260; 80053; 80061; 80178; 84443; 85025; Q9967

== ENCOUNTER → 2023-05-25 15:58 | Outpatient (CLI) | payer OTHER, SELFPAY ==
[2023-05-25 16:32] LABS: INR 3.3 (0.9-1.3); Prothrombin Time 38.9 SECONDS (10.1-12.7)
== END ==
PROVIDERS: PCP Family Medicine; Referring Provider Family Medicine; Visit Provider Family Medicine
DX: I48.91 Unspecified atrial fibrillation (principal); Z79.01 Long term (current) use of anticoagulants
CPT/HCPCS: 36415; 85610

== ENCOUNTER → 2023-08-08 13:30 | Outpatient (CLI) | payer OTHER, SELFPAY ==
[2023-08-08 14:56] LABS: INR 3.9 (0.9-1.3); Prothrombin Time 45.7 SECONDS (10.1-12.7)
== END ==
PROVIDERS: PCP Family Medicine; Referring Provider Family Medicine; Visit Provider Family Medicine
DX: Z79.01 Long term (current) use of anticoagulants (principal); I48.21 Permanent atrial fibrillation
CPT/HCPCS: 36415; 85610

== ENCOUNTER → 2023-11-12 10:30 | Outpatient (CLI) | payer OTHER, SELFPAY ==
[2023-11-12 11:11] LABS: INR 2.7 (0.9-1.3); Prothrombin Time 30.9 SECONDS (9.4-12.5)
== END ==
PROVIDERS: PCP Family Medicine; Referring Provider Family Medicine; Visit Provider Family Medicine
DX: I48.21 Permanent atrial fibrillation (principal); Z79.01 Long term (current) use of anticoagulants; Z79.899 Other long term (current) drug therapy
CPT/HCPCS: 36415; 85610

== ENCOUNTER → 2023-12-27 09:38 | Outpatient (CLI) | payer OTHER, SELFPAY ==
[2023-12-27 10:37] LABS: INR 2.5 (0.9-1.3); Prothrombin Time 29.4 SECONDS (9.4-12.5)
== END ==
LOC: LAB 09:39
PROVIDERS: PCP Family Medicine; Referring Provider Family Medicine; Visit Provider Family Medicine
DX: I82.409 Acute embolism and thrombosis of unspecified deep veins of unspecified lower extremity (principal)
CPT/HCPCS: 36415; 85610

== ENCOUNTER → 2024-03-20 14:30 | Outpatient (CLI) | payer OTHER, SELFPAY ==
[2024-03-20 15:39] LABS: INR 2.8 (0.9-1.3); Prothrombin Time 32.2 SECONDS (9.4-12.5)
== END ==
PROVIDERS: PCP Family Medicine; Referring Provider Family Medicine; Visit Provider Family Medicine
DX: Z79.01 Long term (current) use of anticoagulants (principal); I48.21 Permanent atrial fibrillation; Z51.81 Encounter for therapeutic drug level monitoring
CPT/HCPCS: 36415; 85610

== ENCOUNTER → 2024-11-07 15:46 | Outpatient (CLI) | payer OTHER, SELFPAY ==
[2024-11-07 16:39] LABS: Add Manual Diff / Slide Review NO; Basophils Absolute Auto 0 /uL (0-100); Basophils Percent Auto 0.3 % (0-2); Eosinophils Absolute Auto 400 /uL (0-450); Eosinophils Percent Auto 3.5 % (2-4); Hematocrit 41.6 % (41-53); Hemoglobin 13.5 g/dL (13.5-17.5); Lymphocytes Absolute Auto 1400 /uL (1100-4500); Lymphocytes Percent Auto 14.1 % (25-40); Mean Corpuscular HGB Conc 32.4 % (30-36); Mean Corpuscular Hemoglobin 28.7 PG (26-34); Mean Corpuscular Volume 88.8 fL (80-100); Monocytes Absolute Auto 600 /uL (0-900); Monocytes Percent Auto 6.1 % (3-14); Neutrophils Absolute Auto 7500 /uL (1500-7000); Platelet Count 396 X10^3/uL (150-400); Red Blood Cell Count 4.68 X10^6/uL (4.5-5.9); Red Cell Distribution Width 14.1 % (11.6-14.8); White Blood Cell Count 9.9 X10^3/uL (4.5-11.0)
[2024-11-07 17:13] LABS: Prothrombin Time 68.1 SECONDS (9.4-12.5)
[2024-11-07 17:15] LABS: Lithium 0.7 mmol/L (0.6-1.2)
[2024-11-07 17:27] LABS: Alanine Aminotransferase 28 IU/L (<50); Albumin 4.4 g/dL (3.5-5.0); Albumin Globulin Ratio 1.2 (1.0-2.8); Alkaline Phosphatase 69 U/L (38-126); Aspartate Aminotransferase 28 IU/L (17-59); BUN Creatinine Ratio 19.3 (6-22); Bilirubin Total 0.4 mg/dL (0.2-1.3); Blood Urea Nitrogen 34 mg/dL (9-20); Calcium 9.9 mg/dL (8.4-10.2); Carbon Dioxide 29 mmol/L (22-32); Chloride 106 mmol/L (98-107); Estimated Glomerular Filt Rate 39 mL/min (>60); Globulin 3.7 g/dL (1.7-4.1); Glucose 102 mg/dL (80-110); HEMOLYSIS < 15 (0-50); Sodium 143 mmol/L (137-145); Total Protein 8.1 g/dL (6.3-8.2)
[2024-11-07 17:29] LABS: Potassium 5.4 mmol/L (3.4-5.1)
[2024-11-07 17:41] LABS: INR 6.3 (0.9-1.3)
[2024-11-07 17:52] LABS: TSH w/ Reflex to FT4 3.94 uIU/mL (0.47-4.68)
== END ==
PROVIDERS: PCP Family Medicine; Referring Provider Family Medicine; Visit Provider Family Medicine
DX: J44.9 Chronic obstructive pulmonary disease, unspecified (principal); F31.9 Bipolar disorder, unspecified; C61 Malignant neoplasm of prostate; I48.91 Unspecified atrial fibrillation; Z79.01 Long term (current) use of anticoagulants; I48.21 Permanent atrial fibrillation; Z51.81 Encounter for therapeutic drug level monitoring
CPT/HCPCS: 36415; 80053; 80178; 84153; 84439; 84443; 85025; 85610

== ENCOUNTER → 2024-11-12 13:39 | Outpatient (CLI) | payer OTHER, SELFPAY ==
[2024-11-12 15:35] LABS: Blood Urea Nitrogen 27 mg/dL (9-20); Calcium 9.8 mg/dL (8.4-10.2); Carbon Dioxide 24 mmol/L (22-32); Chloride 106 mmol/L (98-107); Estimated Glomerular Filt Rate 50 mL/min (>60); Glucose 76 mg/dL (80-110); HEMOLYSIS < 15 (0-50); Potassium 5.2 mmol/L (3.4-5.1); Sodium 141 mmol/L (137-145)
== END ==
PROVIDERS: PCP Family Medicine; Referring Provider Family Medicine; Visit Provider Family Medicine
DX: E87.5 Hyperkalemia (principal)
CPT/HCPCS: 36415; 80048

== ENCOUNTER → 2024-11-24 13:42 | Outpatient (CLI) | payer OTHER, SELFPAY ==
[2024-11-24 14:23] LABS: INR 1.5 (0.9-1.3); Prothrombin Time 17.3 SECONDS (9.4-12.5)
== END ==
PROVIDERS: PCP Family Medicine; Referring Provider Family Medicine; Visit Provider Family Medicine
DX: Z51.81 Encounter for therapeutic drug level monitoring (principal); I48.21 Permanent atrial fibrillation; Z79.01 Long term (current) use of anticoagulants
CPT/HCPCS: 36415; 85610